=== PATIENT | female | born 1975 | race Caucasian/White ===

== ENCOUNTER 2018-09-15 04:58 | Day surgery (SDC) | payer OTHER ==
[2018-09-14 08:37] VITALS: BMI 39.4
[2018-09-15] MEDS ORDERED: ceFAZolin SODIUM 1 GM VIAL IVPB ONE (08:20)
--- NOTE | 2018-09-15 10:09 | HP ---
[facility] - Chief Complaint Chief Complaint: right shoulder pain - Past Medical History Allergies/Adverse Reactions: Allergies Allergy/AdvReac Type Severity Reaction Status Date / Time No Known Allergies Allergy Verified 09/14/18 08:37 ...LMP: 08/14/18 - Current Medications Current Medications: Home Medications Medication Instructions Recorded Albuterol 0.083% Nebulizer Rukhsana 1 neb NEB ONCE 09/14/18 [Ventolin 0.083% Nebulizer Soln -] Albuterol Sulfate Inhaler - 1 puff IH PRN 09/14/18 [Ventolin Hfa Inhaler -] [facility] Physical Exam - Physical Examination Vital Signs: Vital Signs Period Temp Pulse Resp BP Sys/Spence Pulse Ox Last 24 Hr 98.3 F 75 20 120/75 99 General Appearance: Well Nourished, Well Developed, Alert & Oriented x3 ENT: Clear Lung: Normal air movement Heart: Regular rate & rhythm Extremities: Other (right shoulder- + ttp, decr rom, + neer, +khoury, nvi MRi + partial rct) Neurological: Intact, Alert, Oriented [facility]ellite Impression/Plan - Impression/Plan Impression: right shoulder impingement, partial rct Operative Procedure: right shoulder arthroscopy with SAD, DCE, possible RCR Date to be Performed: 09/15/18
--- NOTE | 2018-09-15 10:10 | OP ---
Operative Note - Note: Operative Date: 09/15/18 ([facility]) Pre-Operative Diagnosis: right shoulder impingement, rct Operation: right shoulder arthroscopy with MARGARITA, PARAS, ALISE Post-Operative Diagnosis: Same as Pre-op Surgeon: Bartolo Kasper Cloth Laminating Supervisor: Brijesh Goode Anesthesiologist/PROVIDER RELATIONS CONSULTANT: Alison Corral Anesthesia: General, Local Specimens Removed: shavings Estimated Blood Loss (mls): 5 Operative Report Dictated: Yes
[2018-09-15] MEDS ORDERED: ONDANSETRON 4 MG/2 ML VIAL IVPUSH PRN (10:46)
[2018-09-15] MEDS ORDERED: oxyCODONE HCL 5 MG TABLET PO PRN (10:46)
[2018-09-15] MEDS ORDERED: LACTATED RINGERS SOLUTION 1,000 ML IV SCH (11:00)
[2018-09-15 15:58] VITALS: BP 142/90; PULSE 90; TEMP 98
--- NOTE | 2018-09-15 19:27 | SPEC ---
DATE OF OPERATION: 09/15/2018 PREOPERATIVE DIAGNOSIS: Right shoulder impingement syndrome and possible rotator cuff tear. POSTOPERATIVE DIAGNOSIS: Right shoulder impingement syndrome. SURGEON: Bartolo Kasper M.D. DIRECTOR FRAUD: Nkechi Noland M.D. SECOND DIRECTOR FRAUD: Willy Mandel PROCEDURE: Right shoulder arthroscopy, subacromial decompression, distal clavicle excision. DRAINS: None. COMPLICATIONS: None. BLOOD LOSS: Minimal. BLOOD GIVEN: None. FLUID REPLACEMENT: 500 mL Plasmalyte. ANESTHESIOLOGIST: Alison Bhagat MOVABLE BULKHEAD INSTALLER ANESTHESIA: Right interscalene block and MAC anesthesia. INDICATIONS: After understanding the potential risks, complications, alternatives and benefits of surgery versus nonsurgical treatment, the patient elected to undergo this procedure. PROCEDURE: The patient was brought to the operating room. Peripheral IV placed and left interscalene block was performed. General endotracheal anesthesia was induced after an LMA was not working. The patient was placed into the beach chair position with ample padding throughout. The patient received 1 gram of IV Ancef. The arthroscope was introduced into the glenohumeral joint. Diagnostic arthroscope was performed. Inside the joint there was some tearing of the anterior capsule from the manipulation. The rotator cuff looked great. There was no glenohumeral arthritis. The superior and anterior portion of the labrum looked degenerated and frayed. The area was copiously irrigated and washed out. The arthroscope was introduced into the subacromial space. Patient had a tremendous amount of bursitis and the lateral portal was established under direct visualization. A Green cannula was introduced into the joint and a soft tissue bursectomy was performed with ArthroCare wand. This revealed a very large bony spur which was taken down with a 5.5 mm oval bur and a [place] Green shaver. The patient had a very low-lying lateral inferior clavicle; therefore, this was taken down to the level of the AC joint with the ford as well. The debris was removed. Patient had ample space. The arm was put through a range of motion. There was no impingement. The area was copiously irrigated and washed out, debris removed with a shaver. The arthroscopy portals were closed with 3-0 nylon sutures. The area was then washed and dried, covered with Xeroform, 4 x 4 gauze, ABDs and tape. Total operative time was about 50 minutes. There were no complications during the case. The patient tolerated the procedure quite well and was bought to the recovery room in stable condition. ADDENDUM: A full evaluation of the rotator cuff was done. There was some fraying of the intraarticular undersurface which was debrided after establishing an anterior portal. There was also some fraying on the top surface which was also debrided, but no formal rotator cuff repair was required. NKECHI NOLAND M.D. [id number]
--- NOTE | 2018-09-16 11:17 | PATH ---
Surgical Pathology Report Patient Name: CHUCKIE CARRASQUILLO [facility]. Rec. #: [id number] /Age/Gender: 1975 (Age: 43) / F Account: [id number] Location: [facility] SURGICAL Taken: 09/15/2018 Received: 09/15/2018 Reported: 09/16/2018 Physicians: Verenice Srivastava M.D. Specimen(s) Received RIGHT SHOULDER SHAVINGS Clinical History Right shoulder tear Final Diagnosis SHOULDER SHAVINGS, RIGHT, ARTHROSCOPY: FRAGMENTS OF BENIGN CARTILAGE, DENSE FIBROCONNECTIVE TISSUE, ADIPOSE TISSUE, BONE, AND SKELETAL MUSCLE. Electronically Signed Kaitlin Hawthorne M.D. Gross Description Received in formalin, labeled "right shoulder shavings," is a 4.0 x 3.5 x 0.3 cm. aggregate of crews-yellow soft tissue fragments. A senior account representative portion is submitted in one cassette. /09/15/201809/15/2018
== END 2018-09-15 13:40 | disposition home or self-care (01) ==
LOC: JASU-SURG 04:58
PROVIDERS: ATTEND Orthopaedic Surgery
PROC: 0RBJ4ZZ Excision of Right Shoulder Joint, Percutaneous Endoscopic Approach (ICD-10-PCS; principal; 2018-09-15 08:00)
PROC: 0PB94ZZ Excision of Right Clavicle, Percutaneous Endoscopic Approach (ICD-10-PCS; 2018-09-15 08:00)
DX: M75.41 Impingement syndrome of right shoulder (principal)
CPT/HCPCS: 84703; 88304-TC; 94760

== ENCOUNTER 2022-08-12 20:24 | Observation (INO) | payer OTHER ==
[2022-08-12 20:58] VITALS: BMI 38.6
[2022-08-12] MEDS ORDERED: KETOROLAC TROMETHAMINE 30 MG/1 ML VIAL IM ONE (21:29)
[2022-08-12] MEDS ORDERED: METHOCARBAMOL 500 MG TABLET PO ONE ×2 (21:29→22:35)
[2022-08-12] MEDS ORDERED: LIDOCAINE 5% TOPICAL PATCH TP ONE (21:29)
[2022-08-12] MEDS ORDERED: METHOCARBAMOL 500 MG TABLET ONE ×2 (21:52→22:39)
[2022-08-12] MEDS ORDERED: LIDOCAINE 5% TOPICAL PATCH ONE (21:52)
[2022-08-12] MEDS ORDERED: KETOROLAC TROMETHAMINE 30 MG/1 ML VIAL ONE (21:53)
[2022-08-13] MEDS ORDERED: KETAMINE HCL 200 MG/20 ML VIAL IVPUSH ONE (00:26)
[2022-08-13] MEDS ORDERED: KETAMINE HCL 500 MG/10 ML VIAL ONE (01:08)
[2022-08-13] MEDS ORDERED: ONDANSETRON *ODT* 4 MG TABLET ONE (01:35)
[2022-08-13] MEDS ORDERED: ONDANSETRON 4 MG/2 ML VIAL ONE (01:36)
[2022-08-13] MEDS ORDERED: ACETAMINOPHEN 1000 MG/100 ML BAG IVPB PRN ×2 (06:07→08:07)
[2022-08-13] MEDS ORDERED: ACETAMINOPHEN INJECTION 100 ML IVPB ONE (06:20)
[2022-08-13 08:03] LABS: BASO % 0.3 % (0-2.0); EOS % 0.3 % (0-4.5); HEMATOCRIT 39.1 % (32.4-45.2); HEMOGLOBIN 13.3 GM/dL (10.7-15.3); LYMPH % 23.7 % (8-40); MCH 30.7 pg (25.7-33.7); MEAN CELL VOLUME 90.4 fl (80-96); MEAN PLT VOLUME 8.4 fl (7.5-11.1); NEUT % 71.7 % (42.8-82.8); PLATELET COUNT 267 10^3/uL (134-434); RBC 4.33 M/mm3 (3.60-5.2); RDW 14.4 % (11.6-15.6); WHITE BLOOD COUNT 9.2 K/mm3 (4.0-10.0)
[2022-08-13 08:46] LABS: ALBUMIN 3.2 g/dl (3.4-5.0); BLOOD UREA NITROGEN 14.1 mg/dL (7-18); CALCIUM 8.9 mg/dL (8.5-10.1)
[2022-08-13 08:49] LABS: PHOSPHOROUS 3.9 mg/dL (2.5-4.9)
[2022-08-13 08:50] LABS: CREATININE 0.7 mg/dL (0.55-1.3)
[2022-08-13 08:51] LABS: BILIRUBIN,TOTAL 0.4 mg/dL (0.2-1)
[2022-08-13] MEDS ORDERED: LIDOCAINE PATCH REMOVAL MC SCH (10:00)
[2022-08-13] MEDS ORDERED: BISACODYL 5 MG TABLET.DR (FP) PO ONE (16:16)
[2022-08-13] MEDS ORDERED: DOCUSATE SODIUM 100 MG CAPSULE (FP) PO PRN (16:16)
[2022-08-13] MEDS ORDERED: LIDOCAINE 5% TOPICAL PATCH ONE (16:44)
[2022-08-13] MEDS: morphine SULFATE 4 MG/ML VIAL IVPUSH PRN (21:08)
[2022-08-13] MEDS: ACETAMINOPHEN 500 MG TABLET (FP) PO PRN (22:14)
[2022-08-14] MEDS: morphine SULFATE 4 MG/ML VIAL IVPUSH PRN ×5 (01:13→23:50)
[2022-08-14] MEDS: ACETAMINOPHEN 500 MG TABLET (FP) PO PRN (06:42)
[2022-08-14 11:16] LABS: CALCIUM 8.7 mg/dL (8.5-10.1)
[2022-08-14 11:17] LABS: BLOOD UREA NITROGEN 10.5 mg/dL (7-18)
[2022-08-14 11:19] LABS: CREATININE 0.7 mg/dL (0.55-1.3)
[2022-08-14] MEDS: GABAPENTIN 300 MG CAPSULE PO SCH ×2 (13:46→22:36)
[2022-08-14] MEDS: ACETAMINOPHEN 500 MG TABLET (FP) PO SCH ×3 (13:48→22:35)
[2022-08-14] MEDS: LIDOCAINE 5% TOPICAL PATCH TP SCH (13:49)
[2022-08-14] MEDS ORDERED: methylPREDNISolone 4 MG TABLET PO ONE ×2 (17:30→22:00)
[2022-08-14 18:07] VITALS: RESP 18
[2022-08-14] MEDS ORDERED: LIDOCAINE PATCH REMOVAL MC SCH (22:00)
[2022-08-15] MEDS: morphine SULFATE 4 MG/ML VIAL IVPUSH PRN ×2 (03:53→08:16)
[2022-08-15] MEDS: ACETAMINOPHEN 500 MG TABLET (FP) PO SCH ×2 (06:45→13:23)
[2022-08-15] MEDS: GABAPENTIN 300 MG CAPSULE PO SCH ×2 (06:46→13:23)
[2022-08-15] MEDS ORDERED: methylPREDNISolone 4 MG TABLET PO ONE ×4 (07:00→22:00)
[2022-08-15] MEDS: LIDOCAINE 5% TOPICAL PATCH TP SCH (09:53)
[2022-08-15 15:25] VITALS: BP 138/72; PULSE 60; TEMP 98
[2022-08-16] MEDS ORDERED: methylPREDNISolone 4 MG TABLET PO ONE ×4 (07:00→22:00)
[2022-08-17] MEDS ORDERED: methylPREDNISolone 4 MG TABLET PO ONE ×3 (07:00→22:00)
[2022-08-18] MEDS ORDERED: methylPREDNISolone 4 MG TABLET PO ONE ×2 (07:00→22:00)
[2022-08-19] MEDS ORDERED: methylPREDNISolone 4 MG TABLET PO ONE (07:00)
== END 2022-08-15 18:29 | disposition home or self-care (01) ==
LOC: JER 20:24 → JERBED 08-13 02:35 → J8W 08-13 18:37
PROVIDERS: ADMIT Family Medicine; ATTEND Internal Medicine
PROC: 3E033NZ Introduction of Analgesics, Hypnotics, Sedatives into Peripheral Vein, Percutaneous Approach (ICD-10-PCS; principal; 2022-08-13)
PROC: 3E033GC Introduction of Other Therapeutic Substance into Peripheral Vein, Percutaneous Approach (ICD-10-PCS; 2022-08-13)
PROC: 3E0233Z Introduction of Anti-inflammatory into Muscle, Percutaneous Approach (ICD-10-PCS; 2022-08-13)
PROC: 3E033NZ Introduction of Analgesics, Hypnotics, Sedatives into Peripheral Vein, Percutaneous Approach (ICD-10-PCS; 2022-08-13)
DX: G56.02 Carpal tunnel syndrome, left upper limb (principal); J45.909 Unspecified asthma, uncomplicated; M54.2 Cervicalgia; M54.9 Dorsalgia, unspecified; M25.532 Pain in left wrist; M62.830 Muscle spasm of back; E66.8 Other obesity; Z68.37 Body mass index [BMI] 37.0-37.9, adult; Z29.8 Encounter for other specified prophylactic measures; R42 Dizziness and giddiness
CPT/HCPCS: 36415; 72125-TC; 72141-TC; 73030-TC-LT-FY; 80048; 80053; 83735; 84100; 85025; 93005; 93010; 97116-GP; 97161-GP; 99285-25; C9803-CS; G0378; U0003; U0005

== ENCOUNTER 2022-09-19 04:04 | Day surgery (SDC) | payer OTHER ==
[2022-08-27 15:28] VITALS: BMI 39.4
[~2022-09-19 04:04] MED LIST: DEXAMETHASONE SOD PHOSPHATE 10 MG/1 ML VIAL IVPUSH ONE; IOHEXOL 180 MG/1 ML ML IJ ONE; LIDOCAINE 1% P/F 10 MG/ML VIAL SNB ONE
[2022-09-19 08:54] VITALS: TEMP 98.2
[2022-09-19] MEDS ORDERED: DEXAMETHASONE SOD PHOSPHATE 10 MG/1 ML VIAL IVPUSH ONE (10:34)
[2022-09-19] MEDS ORDERED: LIDOCAINE 1% P/F 10 MG/ML VIAL SNB ONE (10:34)
[2022-09-19] MEDS ORDERED: IOHEXOL 180 MG/1 ML ML IJ ONE (10:34)
[2022-09-19 11:08] VITALS: RESP 20
[2022-09-19 11:37] VITALS: BP 129/94; PULSE 93
== END 2022-09-19 11:40 | disposition home or self-care (01) ==
LOC: JASU-SURG 04:04
PROVIDERS: ATTEND Pain Medicine Pain Medicine
PROC: 3E0R3BZ Introduction of Anesthetic Agent into Spinal Canal, Percutaneous Approach (ICD-10-PCS; 2022-09-19)
PROC: 3E0R33Z Introduction of Anti-inflammatory into Spinal Canal, Percutaneous Approach (ICD-10-PCS; principal; 2022-09-19 09:45)
DX: M54.12 Radiculopathy, cervical region (principal)
CPT/HCPCS: 76000-TC-FY; 81025; J1100